=== PATIENT | female | born 1935 | race Caucasian/White ===

== ENCOUNTER 2024-10-06 16:55 | Emergency (ER) | payer MEDICARE ==
[~2024-10-06] VITALS: Ht 175.3 cm; Wt 88.6 kg
[2024-10-06] MEDS ORDERED: METOPROLOL SUCC25 MG PO (17:18)
[2024-10-06] MEDS ORDERED: AMLODIPINE BESY10 MG PO (17:18)
[2024-10-06] MEDS: SODIUM CHLORIDE 0.9% 1000ML 1,000 ML IV ONE (17:54)
[2024-10-06] MEDS: KETOROLAC TROMETHAMINE 30 MG/ML VIAL IV STA (18:39)
[2024-10-06] MEDS ORDERED: CEFTRIAXONE 1 GM VIAL ONE (18:53)
[2024-10-06] MEDS ORDERED: SODIUM CHLORIDE 0.9% 100 ML ONE (18:53)
[2024-10-06] MEDS: CEFTRIAXONE 2 GM in SODIUM CHLORIDE 0.9% 100 ML IV ONE (19:03)
[2024-10-06] MEDS ORDERED: CEFDINIR300 MG PO (19:10)
[2024-10-06 19:47] VITALS: PULSE 82; RESP 18; TEMP 98.2
[2024-10-06 19:57] VITALS: BP 143/85; PULSE 82; RESP 18; TEMP 98.2; O2SAT 97
== END 2024-10-06 19:50 | disposition home or self-care (01) ==
LOC: FSED 17:12
DX: R53.81 Other malaise (principal); N39.0 Urinary tract infection, site not specified; Z11.52 Encounter for screening for COVID-19
CPT/HCPCS: 0223U; 80048; 81003; 85025; 87400; 99284; J0696; J7030; J7050